=== PATIENT | female | born 1995 | race Caucasian/White ===

== ENCOUNTER 2017-09-15 18:47 | Emergency (ER) | payer OTHER ==
[~2017-09-15] VITALS: Ht 154.9 cm; Wt 51.7 kg
[2017-09-15] MEDS ORDERED: SULFAMETHOXAZO500 GM (19:55)
== END 2017-09-15 22:44 | disposition home or self-care (01) ==
LOC: ER 18:47
DX: S70.272A Other superficial bite of hip, left hip, initial encounter (principal); W54.0XXA Bitten by dog, initial encounter; Y93.89 Activity, other specified; Y92.89 Other specified places as the place of occurrence of the external cause; Y99.8 Other external cause status